=== PATIENT | female | born 1985 | race Caucasian/White ===

== ENCOUNTER 2017-06-06 09:34 | Emergency (ER) | payer BC ==
[~2017-06-06] VITALS: Ht 162.6 cm; Wt 54.6 kg
[~2017-06-06 09:34] MED LIST: ACET-1256 PO; ACETTAB14 PO; AMPH30TA2 PO; ATV/1 PO; LXP/20 PO; RMR15 PO; TRIA0.1C20 TOP
[2017-06-06 09:38] VITALS: TEMP 36.8; Ht 162.6 cm; Wt 54.6 kg
[2017-06-06 10:07] LABS: URINE APPEARANCE CLEAR (CLEAR); URINE BILIRUBIN NEG (NEG); URINE COLOR YELLOW; URINE EPITHELIAL CELL AUTO 0-5 /lpf (0-5); URINE NITRITE NEG (NEG); URINE SPECIFIC GRAVITY 1.007 (1.000-1.030); UROBILINOGEN NEG (NEG); ZZUR CULT IF INDIC CLEAN CATCH NO
[2017-06-06 10:09] LABS: MANUAL MICROSCOPIC REQUIRED? NO; REVIEW REQ? NO
[2017-06-06] MEDS ORDERED: ONDANSETRON INJ 2 MG/ML 2 ML VIAL IV PRN (10:15)
[2017-06-06] MEDS: MoRPHine SULFATE 10 MG/ML CARP/VIAL IV PRN ×3 (10:26→13:14)
[2017-06-06 10:31] LABS: BASO % 0.4 %; BASO ABS # 0.03 K/uL (0-0.2); COMPLETE YES; EOS % 0.7 %; HEMATOCRIT 40.5 % (37-47); IG% 0.1 %; LYMPH % 18.1 %; MEAN CELL VOLUME 92.3 fL (80-100); MEAN CORPUSCULAR HEMOGLOBIN 31.7 pg (25-34); MEAN CORPUSCULAR HGB CONC 34.3 g/dl (32-36); MEAN PLATELET VOLUME 8.8 fL (7.4-10.4); NEUT % 70.7 %; PLATELET COUNT 346 K/uL (130-400); RED BLOOD COUNT 4.39 M/uL (4.2-5.4); WHITE BLOOD COUNT 8.29 K/uL (4.8-10.8)
[2017-06-06 10:48] LABS: BUN/CREATININE RATIO 11.3 (10-20); CALCIUM 9.2 mg/dl (8.5-10.1); CREATININE 0.91 mg/dl (0.60-1.20); POTASSIUM 4.1 mmol/L (3.5-5.1)
[2017-06-06 10:51] LABS: ALB/GLOB RATIO 1.2 (0.9-2)
[2017-06-06 11:01] VITALS: O2SAT 100
--- NOTE | 2017-06-06 11:14 | DIAGNOSTIC IMAGING REPORT ---
ABD/PELVIS WITHOUT FOR STONE HISTORY: 32 years-old Female acute right flank pain COMPARISON: CT abdomen and pelvis 12/22/2014 TECHNIQUE: Multiple axial CT images of the abdomen and pelvis were obtained without IV contrast. A dose lowering technique was used consistent with the principals of ONESIMO. FINDINGS: Bilateral breast augmentation devices are partially imaged. Lung bases are clear. There is no pneumoperitoneum. The imaged inferior cardiac chambers are unremarkable. The liver, gallbladder, spleen, pancreas and adrenal glands are unremarkable. Bilateral kidneys are within normal limits. There is a 3 mm calcification of the right hemipelvis which appears to be positioned just medial to the distal right ureter which can be seen on image 328 of the thin section axial series. No significant right-sided hydronephrosis. Note that this calcification was not seen on comparison study 12/22/2014 The urinary bladder, uterus and adnexa are within normal limits. The abdominal aorta is normal in course and caliber. There is no bulky adenopathy. No bowel obstruction. The appendix appears normal. Soft tissues are within normal limits. Bones are intact. IMPRESSION: 1. 3 mm calcification of the right hemipelvis appears to be positioned just medial to the right ureterovesicular junction suggesting phlebolith rather than calculus. However considering the patient's acute right-sided flank pain, follow-up is recommended to exclude calculus. 2. The remainder of the study is within normal limits. 3. Normal appendix. The above report was generated using voice recognition software. It may contain grammatical, syntax or spelling errors. Electronically signed by: Jimmy Bey M.D. 06/06/2017 11:13 AM Dictated Date/Time: 06/06/2017 11:02 AM
[2017-06-06] MEDS ORDERED: TAMS0.4C38 PO (13:08)
[2017-06-06] MEDS ORDERED: OXYC-57 PO (13:08)
--- NOTE | 2017-06-06 13:10 | EMERGENCY ROOM VISIT NOTE ---
History Report prepared by Kelsey: Alexandro Merrill Under the Supervision of: Dr. King Beltran M.D. First contact with patient: 09:56 Chief Complaint: BACK PAIN Stated Complaint: LOWER BACK PAIN-RT SIDE History of Present Illness The patient is a 32 year old female who presents to the Emergency Room with complaints of persistent right lower back pain beginning two days ago. She describes her pain as "stabbing". She has a history of similar pain associated with pyelonephritis. The patient states that she initially thought that she strained her back by sleeping in an abnormal position, but states that her pain has persisted. Her pain is worsened with deep breathing or movement. She also complains of abdominal pain. The patient denies any urinary symptoms. She notes that she is currently on her period. She states that her legs are a bit sore, but attributes this to recent physical straining while moving boxes. The patient notes that she had an adverse reaction about a year ago, which is thought to be a result of ibuprofen use. Source of History: patient Onset: Two days ago Position: back (right lower) Quality: stabbing Timing: other (persistent) Modifying Factors (Worsening): breathing (deep), movement Associated Symptoms: + abdominal pain, No urinary symptoms Review of Systems All systems have been listed, reviewed, and are negative other than those previously mentioned. Please see Additional Medical History Sheet. Past Medical & Surgical Medical Problems: (1) Abdominal pain (2) Atypical rash (3) Bilateral knee effusions (4) Depression (5) IBS (irritable bowel syndrome) (6) No pertinent past medical history (7) Pyelonephritis (8) Pyelonephritis (9) Suicidal ideation Surgical Problems: (1) H/O breast augmentation Family History No pertinent family history Social History Smoking Status: Never Smoker Alcohol Use: none Drug Use: none Marital Status: Housing Status: lives with family Occupation Status: employed Current/Historical Medications Scheduled Amphetamine-Dextroamphetamine 30MG (Adderall 30MG), 30 MG PO BID Escitalopram Oxalate (Escitalopram Oxalate), 20 MG PO DAILY Tamsulosin Hcl (Flomax), 0.4 MG PO DAILY Scheduled PRN Lorazepam (Ativan), 1 MG PO DAILY PRN for Anxiety Oxycodone/Acetaminophen 5MG/325MG (Percocet 5MG/325MG), 1-2 TABLETS PO Q4H PRN for Pain Allergies Coded Allergies: No Known Allergies (Verified , 06/06/17) Physical Exam Vital Signs Date Time Temp Pulse Resp B/P (MAP) Pulse Ox O2 Delivery O2 Flow Rate FiO2 06/06/17 13:11 86 18 148/94 100 Room Air 06/06/17 11:31 110 18 146/97 99 Room Air 06/06/17 11:06 120 06/06/17 11:01 100 Room Air 06/06/17 09:38 36.8 94 16 136/95 100 Room Air Physical Exam GENERAL: Patient awake, alert, oriented x 3. Appears to be in moderate to severe distress. Patient follows commands. Patient does not appear toxic. Patient is adequately hydrated and well-nourished. SKIN: No erythema, pallor, cyanosis or rash HEENT: Normal head, pupils equal, reactive to light and accommodation. LUNGS: Clear to auscultation. No wheezes, no rales, no rhonchi. HEART: No murmurs. No gallops. No rubs ABDOMEN: Diffuse tenderness to palpation. No masses, no rebound, no hepatomegaly or splenomegaly. BACK: Significant tenderness over the right CVA area. EXTREMITIES: No signs of trauma. NEUROLOGIC: Cranial nerves II-XII within normal limits. No gross motor sensory function deficits. Medical Decision & Procedures ER Provider Diagnostic Interpretation: CT results are interpretations by the radiologist and per my review. ABD/PELVIS WITHOUT FOR STONE FINDINGS: Bilateral breast augmentation devices are partially imaged. Lung bases are clear. There is no pneumoperitoneum. The imaged inferior cardiac chambers are unremarkable. The liver, gallbladder, spleen, pancreas and adrenal glands are unremarkable. Bilateral kidneys are within normal limits. There is a 3 mm calcification of the right hemipelvis which appears to be positioned just medial to the distal right ureter which can be seen on image 328 of the thin section axial series. No significant right-sided hydronephrosis. Note that this calcification was not seen on comparison study 12/22/2014 The urinary bladder, uterus and adnexa are within normal limits. The abdominal aorta is normal in course and caliber. There is no bulky adenopathy. No bowel obstruction. The appendix appears normal. Soft tissues are within normal limits. Bones are intact. IMPRESSION: 1. 3 mm calcification of the right hemipelvis appears to be positioned just medial to the right ureterovesicular junction suggesting phlebolith rather than calculus. However considering the patient's acute right-sided flank pain, follow-up is recommended to exclude calculus. 2. The remainder of the study is within normal limits. 3. Normal appendix. The above report was generated using voice recognition software. It may contain grammatical, syntax or spelling errors. Electronically signed by: Jimmy Bey M.D. Laboratory Results 06/06/17 10:19 Red Blood Count 4.39, Mean Corpuscular Volume 92.3, Mean Corpuscular Hemoglobin 31.7, Mean Corpuscular Hemoglobin Concent 34.3, Mean Platelet Volume 8.8, Neutrophils (%) (Auto) 70.7, Lymphocytes (%) (Auto) 18.1, Monocytes (%) (Auto) 10.0, Eosinophils (%) (Auto) 0.7, Basophils (%) (Auto) 0.4, Neutrophils # (Auto ) 5.86, Lymphocytes # (Auto) 1.50, Monocytes # (Auto) 0.83, Eosinophils # (Auto ) 0.06, Basophils # (Auto) 0.03 06/06/17 10:19 Test 06/06/17 09:51 06/06/17 10:19 Urine Color YELLOW Urine Appearance CLEAR (CLEAR) Urine pH 7.0 (4.5-7.5) Urine Specific [place] 1.007 (1.000-1.030) Urine Protein NEG (NEG) Urine Glucose (UA) NEG (NEG) Urine Ketones NEG (NEG) Urine Occult Blood NEG (NEG) Urine Nitrite NEG (NEG) Urine Bilirubin NEG (NEG) Urine Urobilinogen NEG (NEG) Urine Leukocyte Esterase NEG (NEG) Urine WBC (Auto) 0 /hpf (0-5) Urine RBC (Auto) 0-4 /hpf (0-4) Urine Hyaline Casts (Auto) 0 /lpf (0-5) Urine Epithelial Cells (Auto) 0-5 /lpf (0-5) Urine Bacteria (Auto) NEG (NEG) Urine Test NEG (NEG) White Blood Count 8.29 K/uL (4.8-10.8) Red Blood Count 4.39 M/uL (4.2-5.4) Hemoglobin 13.9 g/dL (12.0-16.0) Hematocrit 40.5 % (37-47) Mean Corpuscular Volume 92.3 fL (80-100) Mean Corpuscular Hemoglobin 31.7 pg (25-34) Mean Corpuscular Hemoglobin Concent 34.3 g/dl (32-36) Platelet Count 346 K/uL (130-400) Mean Platelet Volume 8.8 fL (7.4-10.4) Neutrophils (%) (Auto) 70.7 % Lymphocytes (%) (Auto) 18.1 % Monocytes (%) (Auto) 10.0 % Eosinophils (%) (Auto) 0.7 % Basophils (%) (Auto) 0.4 % Neutrophils # (Auto) 5.86 K/uL (1.4-6.5) Lymphocytes # (Auto) 1.50 K/uL (1.2-3.4) Monocytes # (Auto) 0.83 K/uL (0.11-0.59) Eosinophils # (Auto) 0.06 K/uL (0-0.5) Basophils # (Auto) 0.03 K/uL (0-0.2) RDW Standard Deviation 43.4 fL (36.4-46.3) RDW Coefficient of Variation 12.8 % (11.5-14.5) Immature Granulocyte % (Auto) 0.1 % Immature Granulocyte # (Auto) 0.01 K/uL (0.00-0.02) Anion Gap 5.0 mmol/L (3-11) Est Creatinine Clear Calc Drug Dose 75.8 ml/min Estimated GFR () 96.1 Estimated GFR (Non- 82.9 BUN/Creatinine Ratio 11.3 (10-20) Calcium Level 9.2 mg/dl (8.5-10.1) Total Bilirubin 0.4 mg/dl (0.2-1) Aspartate Amino Transf (AST/SGOT) 13 U/L (15-37) Alanine Aminotransferase (ALT/SGPT) 18 U/L (12-78) Alkaline Phosphatase 52 U/L (45-117) Total Protein 7.6 gm/dl (6.4-8.2) Albumin 4.2 gm/dl (3.4-5.0) Globulin 3.4 gm/dl (2.5-4.0) Albumin/Globulin Ratio 1.2 (0.9-2) Laboratory results as stated above per my review. Medications Administered Medications (Trade) Dose Ordered Sig/Eduar Route Start Time Stop Time Status Last Admin Dose Admin Morphine Sulfate (MoRPHine SULFATE INJ) 6 mg Q1H PRN IV 06/06/17 10:15 06/06/17 13:56 DC 06/06/17 13:14 6 MG Ondansetron HCl (Zofran Inj) 4 mg Q1HWA PRN IV 06/06/17 10:15 06/06/17 13:56 DC 06/06/17 10:25 4 MG ED Course 0958: Past medical records reviewed. The patient was evaluated in room B7. A complete history and physical examination was performed. 1015: Ordered Zofran Inj 4 mg IV, Morphine Sulfate 6 mg IV. 1300: Upon reevaluation, the patient appeared to have improvement of her symptoms. I discussed today's findings with her. She verbalized agreement of the treatment plan. The patient was discharged home. Medical Decision Nurses notes reviewed. Medical history sheet reviewed. Differential diagnosis includes but is not limited to: UTI, pyelonephritis, and kidney stone. Multiple labs, urinalysis and imaging were obtained. Patient's symptoms are consistent with a kidney stone. CT reveals a calcification which may or may not be in the ureter. The patient does not have an acute abdomen and I believe the pain is most consistent with renal colic. The patient will be started on Flomax. She is to take Percocet as needed for severe pain. She is to drink extra fluids and strain her urine. [place] Drug [place] Search Results: patient reviewed within database, no issues identified Medication Reconcilliation Current Medication List: was personally reviewed by me Blood Pressure Screening Patient's blood pressure: Elevated blood pressure Blood pressure disposition: Elevated BP felt to be situational Impression Primary Impression: Renal colic Scribe Attestation The scribe's documentation has been prepared under my direction and personally reviewed by me in its entirety. I confirm that the note above accurately reflects all work, treatment, procedures, and medical decision making performed by me. Departure Information Dispostion Home / Self-Care Prescriptions Oxycodone/Acetaminophen 5MG/325MG (PERCOCET 5MG/325MG) Tab 1-2 TABLETS PO Q4H Y for Pain, #20 TAB Prov: King Beltran M.D. 06/06/17 Tamsulosin Hcl (FLOMAX) 0.4 Mg Cap 0.4 MG PO DAILY, #10 CAP Prov: King Beltran M.D. 06/06/17 Referrals Rj Chopra D.OJane (PCP) Patient Instructions ED [facility] Renal W Colic, [facility] Additional Instructions Take 1 Flomax daily. Take 1-2 Percocet every 4-6 hours as needed for severe pain. Drink extra fluids. Strain your urine. Follow-up with your family physician within the next 10 days. Return here sooner if pain is not controlled with the above medication.
[2017-06-06 13:11] VITALS: BP 148/94; PULSE 86; O2SAT 100
== END 2017-06-06 13:46 | disposition home or self-care (01) ==
LOC: C.EDB 09:36
DX: N23 Unspecified renal colic (principal); F32.9 Major depressive disorder, single episode, unspecified; K58.9 Irritable bowel syndrome, unspecified; Z87.440 Personal history of urinary (tract) infections; Z79.899 Other long term (current) drug therapy

== ENCOUNTER 2017-06-09 11:10 | Emergency (ER) | payer BC ==
[~2017-06-09] VITALS: Ht 162.6 cm; Wt 54.1 kg
[~2017-06-09 11:10] MED LIST changes: -ACET-1256 PO; -ACETTAB14 PO; +OXYC-57 PO; -RMR15 PO; +TAMS0.4C38 PO; -TRIA0.1C20 TOP
[2017-06-09 11:12] VITALS: TEMP 36.5; Ht 162.6 cm; Wt 54.1 kg
[2017-06-09] MEDS ORDERED: SODIUM CHLORIDE 0.9% 1000ML 500 ML IV ONE (11:34)
[2017-06-09 11:44] LABS: HEMATOCRIT 41.7 % (37-47); MEAN CELL VOLUME 93.7 fL (80-100); MEAN CORPUSCULAR HGB CONC 33.1 g/dl (32-36); MEAN PLATELET VOLUME 9.2 fL (7.4-10.4); PLATELET COUNT 395 K/uL (130-400); RED BLOOD COUNT 4.45 M/uL (4.2-5.4); WHITE BLOOD COUNT 6.96 K/uL (4.8-10.8)
[2017-06-09 11:52] LABS: URINE APPEARANCE CLEAR (CLEAR); URINE BILIRUBIN NEG (NEG); URINE COLOR YELLOW; URINE EPITHELIAL CELL AUTO 20-30 /lpf (0-5); URINE NITRITE NEG (NEG); URINE SPECIFIC GRAVITY 1.011 (1.000-1.030); UROBILINOGEN NEG (NEG); ZZUR CULT IF INDIC CLEAN CATCH NO
[2017-06-09 11:53] LABS: MANUAL MICROSCOPIC REQUIRED? NO; REVIEW REQ? NO
[2017-06-09] MEDS ORDERED: MoRPHine SULFATE 10 MG/ML CARP/VIAL IV STA (11:55)
[2017-06-09] MEDS ORDERED: ONDANSETRON INJ 2 MG/ML 2 ML VIAL IV STA (11:55)
[2017-06-09 12:02] LABS: BUN/CREATININE RATIO 8.9 (10-20); CALCIUM 9.7 mg/dl (8.5-10.1); CREATININE 0.94 mg/dl (0.60-1.20); POTASSIUM 3.6 mmol/L (3.5-5.1)
--- NOTE | 2017-06-09 14:21 | DIAGNOSTIC IMAGING REPORT ---
ULTRASOUND RIGHT UPPER QUADRANT ABDOMEN CLINICAL HISTORY: Right-sided abdominal pain and. COMPARISON STUDY: Abdominal CT dated 06/06/2017. TECHNIQUE: Real-time, grayscale, and color flow sonography of the right upper quadrant of the abdomen was performed. Images are reviewed in the transverse and longitudinal planes. FINDINGS: Liver: The liver is normal in size and echotexture. There is no intrahepatic biliary ductal dilatation. The main portal vein is patent. Gallbladder: The gallbladder is normal in appearance. No gallstones are identified. There is no gallbladder wall thickening or pericholecystic fluid. A sonographic Warren's sign is reportedly absent. The common bile duct measures up to 0.4 cm in diameter. Pancreas: Visualized portions of the pancreatic head and body are normal in appearance. Right kidney: Survey images of the right kidney demonstrate normal size and echotexture. There is no hydronephrosis. Ascites: None. IMPRESSION: Unremarkable sonographic assessment of the right upper quadrant. No gallstones are identified. Electronically signed by: Jon Quinn M.D. 06/09/2017 2:20 PM Dictated Date/Time: 06/09/2017 2:17 PM
--- NOTE | 2017-06-09 14:39 | DIAGNOSTIC IMAGING REPORT ---
KUB CLINICAL HISTORY: 32 years-old Female presenting with right flank pain/follow-up for 3 mm calculus. TECHNIQUE: Single supine view of the abdomen was obtained. COMPARISON: CT 06/06/2017. FINDINGS: Mild gaseous distention of transverse colon. Mild stool burden in the ascending and descending colon to the level of the rectum. No gross evidence of free intraperitoneal gas. No calcifications project over the kidneys to suggest nephrolithiasis, which correlates with findings on recent CT. The previously seen calcification along the right ureteropelvic junction is not visualized, possibly representing passage of calculus. Additionally, left pelvic phleboliths noted. Osseous structures intact. IMPRESSION: 1. Previous seen noted calcification in the region of the the right ureterovesical junction is no longer visualized, likely indicating passage of a distal right ureteral calculus. Electronically signed by: Pacheco Perez M.D. 06/09/2017 2:38 PM Dictated Date/Time: 06/09/2017 2:33 PM
--- NOTE | 2017-06-09 15:08 | EMERGENCY ROOM VISIT NOTE ---
History First contact with patient: 11:43 Chief Complaint: KIDNEY STONE Stated Complaint: KIDNEY STONE History of Present Illness The patient is a 32 year old female who presents to the Emergency Room with complaints that she did not pass the stone. The patient was seen here on Friday and was told she has a kidney stone. The patient does not have a history of kidney stones. She does have a history of pyelonephritis. She states that her urine was normal on Friday. The patient states that she was here on Friday she continues to have intermittent nausea and vomiting. She also states that she has pain usually in the morning and at night. Yesterday she took one Percocet in the morning and one at night. She has not taken anything today. The patient states that she called [facility] this morning and was told to come to the emergency room. The patient is not established with an urologist.. The patient states that she has increased pain in the right flank and back with deep inspiration. She also states when she does this it she feels febrile or in the abdomen. The patient denies any urinary symptoms of frequency, hematuria, dysuria. The patient does admit to recent travel 2 weeks ago when she traveled to [place] by car. She does not smoke. She is not on any hormones. She denies any recent surgeries. She has never had a clot in the past. The patient does admit that she has been moving boxes for several weeks since they recently moved. She had moved boxes prior to the onset of her symptoms which brought her to the ER on Friday. Review of Systems 10 system review was performed and was negative unless stated otherwise history of present illness. Past Medical/Surgical History Medical Problems: (1) Abdominal pain (2) Atypical rash (3) Bilateral knee effusions (4) Depression (5) IBS (irritable bowel syndrome) (6) No pertinent past medical history (7) Pyelonephritis (8) Pyelonephritis (9) Suicidal ideation Surgical Problems: (1) H/O breast augmentation Family History No pertinent family history Social History Smoking Status: Former Smoker Alcohol Use: none Drug Use: none Marital Status: Housing Status: lives with family Occupation Status: employed Current/Historical Medications Scheduled Amphetamine-Dextroamphetamine 30MG (Adderall 30MG), 30 MG PO BID Escitalopram Oxalate (Escitalopram Oxalate), 20 MG PO DAILY Tamsulosin Hcl (Flomax), 0.4 MG PO DAILY Scheduled PRN Lorazepam (Ativan), 1 MG PO DAILY PRN for Anxiety Oxycodone/Acetaminophen 5MG/325MG (Percocet 5MG/325MG), 1-2 TABLETS PO Q4H PRN for Pain Physical Exam Vital Signs Date Time Temp Pulse Resp B/P (MAP) Pulse Ox O2 Delivery O2 Flow Rate FiO2 06/09/17 14:33 108 19 140/96 100 06/09/17 13:21 80 17 133/92 06/09/17 11:12 36.5 107 20 153/96 100 Room Air Physical Exam GENERAL: 32-year-old white female appears in no acute distress. MENTAL STATUS: Alert and oriented 3. MOUTH: Mucosa is slightly dry. NECK: Supple, no lymphadenopathy noted. No carotid bruits noted. LUNGS: Clear auscultation without wheezes rales or rhonchi. CARDIAC: Regular rate and rhythm without murmur. Pulses is full and equal throughout. BACK: Mild right CVA tenderness noted. ABDOMEN: Positive bowel sounds all 4 quadrants. Soft, generalized tenderness palpation over the entire right abdomen. No specific point tenderness noted. No rebound or rigidity noted EXTREMITIES: No cyanosis or edema noted. Calves are nontender. No palpable cords. Negative Homans bilaterally. Medical Decision & Procedures ER Provider Diagnostic Interpretation: KUB CLINICAL HISTORY: 32 years-old Female presenting with right flank pain/follow-up for 3 mm calculus. TECHNIQUE: Single supine view of the abdomen was obtained. COMPARISON: CT 06/06/2017. FINDINGS: Mild gaseous distention of transverse colon. Mild stool burden in the ascending and descending colon to the level of the rectum. No gross evidence of free intraperitoneal gas. No calcifications project over the kidneys to suggest nephrolithiasis, which correlates with findings on recent CT. The previously seen calcification along the right ureteropelvic junction is not visualized, possibly representing passage of calculus. Additionally, left pelvic phleboliths noted. Osseous structures intact. IMPRESSION: 1. Previous seen noted calcification in the region of the the right ureterovesical junction is no longer visualized, likely indicating passage of a distal right ureteral calculus. Electronically signed by: Pacheco Perez M.D. 06/09/2017 2:38 PM Dictated Date/Time: 06/09/2017 2:33 PM ULTRASOUND RIGHT UPPER QUADRANT ABDOMEN CLINICAL HISTORY: Right-sided abdominal pain and. COMPARISON STUDY: Abdominal CT dated 06/06/2017. TECHNIQUE: Real-time, grayscale, and color flow sonography of the right upper quadrant of the abdomen was performed. Images are reviewed in the transverse and longitudinal planes. FINDINGS: Liver: The liver is normal in size and echotexture. There is no intrahepatic biliary ductal dilatation. The main portal vein is patent. Gallbladder: The gallbladder is normal in appearance. No gallstones are identified. There is no gallbladder wall thickening or pericholecystic fluid. A sonographic Warren's sign is reportedly absent. The common bile duct measures up to 0.4 cm in diameter. Pancreas: Visualized portions of the pancreatic head and body are normal in appearance. Right kidney: Survey images of the right kidney demonstrate normal size and echotexture. There is no hydronephrosis. Ascites: None. IMPRESSION: Unremarkable sonographic assessment of the right upper quadrant. No gallstones are identified. Electronically signed by: Jon Quinn M.D. 06/09/2017 2:20 PM Dictated Date/Time: 06/09/2017 2:17 PM Laboratory Results 06/09/17 11:30 06/09/17 11:30 Test 06/09/17 11:30 Red Blood Count 4.45 M/uL (4.2-5.4) Mean Corpuscular Volume 93.7 fL (80-100) Mean Corpuscular Hemoglobin 31.0 pg (25-34) Mean Corpuscular Hemoglobin Concent 33.1 g/dl (32-36) RDW Standard Deviation 43.4 fL (36.4-46.3) RDW Coefficient of Variation 12.6 % (11.5-14.5) Mean Platelet Volume 9.2 fL (7.4-10.4) D-Dimer 410 ug/L FEU (0-500) Urine Color YELLOW Urine Appearance CLEAR (CLEAR) Urine pH 7.0 (4.5-7.5) Urine Specific [place] 1.011 (1.000-1.030) Urine Protein NEG (NEG) Urine Glucose (UA) NEG (NEG) Urine Ketones NEG (NEG) Urine Occult Blood NEG (NEG) Urine Nitrite NEG (NEG) Urine Bilirubin NEG (NEG) Urine Urobilinogen NEG (NEG) Urine Leukocyte Esterase NEG (NEG) Urine WBC (Auto) 0 /hpf (0-5) Urine RBC (Auto) 0-4 /hpf (0-4) Urine Hyaline Casts (Auto) 1-5 /lpf (0-5) Urine Epithelial Cells (Auto) 20-30 /lpf (0-5) Urine Bacteria (Auto) NEG (NEG) Anion Gap 4.0 mmol/L (3-11) Est Creatinine Clear Calc Drug Dose 72.7 ml/min Estimated GFR () 92.4 Estimated GFR (Non- 79.7 BUN/Creatinine Ratio 8.9 (10-20) Calcium Level 9.7 mg/dl (8.5-10.1) Total Bilirubin 0.4 mg/dl (0.2-1) Direct Bilirubin 0.1 mg/dl (0-0.2) Aspartate Amino Transf (AST/SGOT) 18 U/L (15-37) Alanine Aminotransferase (ALT/SGPT) 20 U/L (12-78) Alkaline Phosphatase 64 U/L (45-117) Total Protein 7.9 gm/dl (6.4-8.2) Albumin 4.1 gm/dl (3.4-5.0) Lipase 108 U/L (73-393) Medications Administered Medications (Trade) Dose Ordered Sig/Eduar Route Start Time Stop Time Status Last Admin Dose Admin Sodium Chloride 500 ml @ 999 mls/hr Q31M ONCE IV 06/09/17 11:34 06/09/17 12:04 DC 06/09/17 11:34 999 MLS/HR Morphine Sulfate (MoRPHine SULFATE INJ) 6 mg NOW STAT IV 06/09/17 11:55 06/09/17 11:59 DC 06/09/17 12:14 6 MG Ondansetron HCl (Zofran Inj) 4 mg NOW STAT IV 06/09/17 11:55 06/09/17 11:59 DC 06/09/17 12:13 4 MG ED Course The patient was evaluated. I reviewed the patient's EMR. This is from Friday revealed a 3 mm ureteral calculi which they thought was medial to the right UV junction. There was no right hydronephrosis. They stated this possibly could be a ureteral calculi if the patient was symptomatic. Her urinalysis was negative at that time. IV access was obtained. The patient was given morphine 6 mg IV and Zofran 4 mg IV push. CBC and differential, renal profile, LFTs and lipase levels were ordered. D-dimer was ordered and was within normal range. Ultrasound of the gallbladder was ordered and interpreted by the radiologist as above without any acute findings. A KUB was ordered and interpreted by myself and the radiologist as above. The calculus that was previously noted on the CAT scan is no longer visible therefore she possibly passed the stone. The patient's labs are reviewed and were unremarkable. The patient was informed of all findings. The patient was discharged home in stable condition. Medical Decision Due to the fact that on the previous CAT scan and stated that the calculus appeared medial to the ureter I felt further evaluation was necessary. A gallbladder ultrasound was ordered as well as a follow-up KUB. Labs are also ordered for reevaluation. [place] Drug [place] Results: patient reviewed within database Medication Reconcilliation Current Medication List: was personally reviewed by me Blood Pressure Screening Patient's blood pressure: Elevated blood pressure Blood pressure disposition: Elevated BP felt to be situational Impression Primary Impression: Renal colic on right side Departure Information Dispostion Home / Self-Care Condition GOOD Referrals Rj Chopra D.O. (PCP) Forms HOME CARE DOCUMENTATION FORM, IMPORTANT VISIT INFORMATION Patient Instructions My [facility] [employer] Additional Instructions You do not have to strain urine anymore. Recommend ibuprofen 400 mg every 6 hours with food. You may continue the Percocet as needed for pain. Do not drive while taking the Percocet. If you have any worsening of symptoms, uncontrolled pain, uncontrolled nausea vomiting, high fevers return to ER immediately.
[2017-06-09 15:27] VITALS: BP 138/71; PULSE 125; O2SAT 100
== END 2017-06-09 15:29 | disposition home or self-care (01) ==
LOC: C.EDB 11:11 → C.EDC 15:29
DX: N23 Unspecified renal colic (principal); R11.2 Nausea with vomiting, unspecified; F32.9 Major depressive disorder, single episode, unspecified; Z79.899 Other long term (current) drug therapy; Z87.19 Personal history of other diseases of the digestive system; Z87.891 Personal history of nicotine dependence; Z87.898 Personal history of other specified conditions